=== PATIENT | male | born 1995 | race Two or more races ===

== ENCOUNTER 2017-09-23 17:34 | Emergency (ER) | payer OTHER ==
[~2017-09-23] VITALS: Ht 172.7 cm; Wt 81.6 kg
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
[2017-09-23] MEDS ORDERED: HYDR-79 PO (18:28)
[2017-09-23] MEDS: KETOROLAC 60 MG/2 ML VIAL. IM ONE (18:35)
[2017-09-23 18:51] VITALS: BP 115/82
== END 2017-09-23 19:04 | disposition home or self-care (01) ==
LOC: ER 17:34
DX: M25.511 Pain in right shoulder (principal); M43.6 Torticollis; M54.2 Cervicalgia; V49.9XXA Car occupant (driver) (passenger) injured in unspecified traffic accident, initial encounter; Y93.89 Activity, other specified; Y99.8 Other external cause status; Y92.89 Other specified places as the place of occurrence of the external cause
CPT/HCPCS: 96372; 99283; J1885